=== PATIENT | male | born 1940 | race Caucasian/White ===

== ENCOUNTER 2019-04-24 20:09 | Inpatient (IN) | payer MEDICARE, BC ==
[~2019-04-24] VITALS: Ht 160 cm; Wt 78.9 kg
[~2019-04-24 20:09] MED LIST: AMLODIPINE5 MG PO; ASPIRIN325 MG PO; ASPIRIN81 M1 PO; COREG6.25 MG PO; DILTZAC PO; EPA/GLA1 SGL PO; HYDROCHLOROTHIA25 MG PO; NEXIUM40 MG PO; OMEPRAZOLE40 MG PO; PRADAXA150 MG PO; QUINAPRIL40 MG PO; SOTALOL80 MG PO
[2019-04-24 20:10] VITALS: BP 144/92
[2019-04-24 20:26] VITALS: BP 135/87
[2019-04-24 20:46] LABS: BASO # 0.1 10*3/uL (0.0-0.1); BASO % 0.7 % (0.0-1.0); EOS # 0.7 10*3/uL (0.0-0.4); HEMATOCRIT 27.6 % (42.0-52.0); HEMOGLOBIN 7.8 g/dl (14.0-18.0); LYMPH # 2.5 10*3/uL (1.3-4.4); LYMPH % 20.3 % (27.0-41.0); MEAN CELL VOLUME 76.9 fl (80.0-94.0); MEAN CORPUSCULAR HGB 21.7 pg (27.0-31.0); MEAN CORPUSCULAR HGB CONC 28.3 g/dl (33.0-37.0); MEAN PLATELET VOLUME 11.6 fl (9.6-12.3); MONO # 1.4 10*3/uL (0.1-1.0); MONO % 11.8 % (3.0-9.0); NEUT # 7.3 10*3/uL (2.3-7.9); NEUT % 60.7 % (47.0-73.0); PLATELET COUNT AUTOMATED 325 10*3/uL (130-400); RED BLOOD COUNT 3.59 10*6/uL (4.50-5.90); WHITE BLOOD COUNT 12.1 10*3/uL (4.8-10.8)
[2019-04-24 21:00] LABS: ALBUMIN 3.2 gm/dl (3.1-4.5); ALKALINE PHOSPHATASE 77 U/L (45-117); BUN 21 mg/dl (7-24); CHLORIDE 107 mmol/L (98-107); CREATININE 1.48 mg/dL (0.70-1.30); POTASSIUM 3.8 mmol/L (3.5-5.1); SGOT/AST 61 IU/L (3-35); SGPT/ALT 79 U/L (12-78); SODIUM 140 mmol/L (136-145); TOTAL PROTEIN 7.7 gm/dL (6.4-8.2)
[2019-04-24 21:02] LABS: TROPONIN I < 0.015 ng/ml (<0.045)
[2019-04-24 21:07] VITALS: BP 108/47
--- NOTE | 2019-04-24 21:08 | NUR ---
PT WAS GIVEN 5 MG OF CARDIZEM WHEN HIS RATE DROPPED FROM 122 TO 82 AT THAT TIME THE CARDIZEM WAS STOPPED AND THE DRIP WAS NOT STARTED. TIFFANY HERMAN RN.
[2019-04-24 21:49] LABS: ACT PARTIAL THROMBO TIME 25.2 SECONDS (20.0-32.1)
--- NOTE | 2019-04-24 22:27 | NUR ---
PT MOVED TO HOSPITAL BED CALL LIGHT IN REACH SIDE RAILS UP . PT VOICES NO COMPLAINTS. TIFFANY HERMAN RN.
--- NOTE | 2019-04-24 23:40 | NUR ---
LAB CALLED WITH CRITICAL TROPONIN LEVEL OF 0.091.
[2019-04-25] VITALS (12 sets, daily range): BP systolic 104–138; BP diastolic 49–80
--- NOTE | 2019-04-25 01:16 | NUR ---
AFTER STARTING THE CARDIZEM DRIP THE PATIENT RATE AGAIN DROPPED TO THE 70/S AND THE PATIENT STATES THE BACK PAIN IS GONE. TIFFANY HERMAN RN.
--- NOTE | 2019-04-25 02:34 | NUR ---
RESIDENT MADR AWARE OF ELEVATED TROPONIN OF 0.156. TIFFANY HERMAN RN
[2019-04-25 05:43] LABS: ALBUMIN 2.9 gm/dl (3.1-4.5); ALKALINE PHOSPHATASE 63 U/L (45-117); BUN 19 mg/dl (7-24); CHLORIDE 108 mmol/L (98-107); CHOLESTEROL 87 mg/dL (<200); CREATININE 1.19 mg/dL (0.70-1.30); HDL CHOLESTEROL 24 mg/dl (40-60); LDL CHOLESTEROL 53 mg/dL (9-159); POTASSIUM 3.5 mmol/L (3.5-5.1); SGOT/AST 41 IU/L (3-35); SGPT/ALT 63 U/L (12-78); SODIUM 140 mmol/L (136-145); TOTAL PROTEIN 6.8 gm/dL (6.4-8.2); TRIGLYCERIDES 49 mg/dl (<150); VLDL CHOLESTEROL 10 mg/dL (6-40)
[2019-04-25 06:18] LABS: BASO # 0.1 10*3/uL (0.0-0.1); BASO % 0.6 % (0.0-1.0); EOS # 0.7 10*3/uL (0.0-0.4); EOS % 5.7 % (1.0-4.0); HEMOGLOBIN 7.3 g/dl (14.0-18.0); LYMPH # 2.3 10*3/uL (1.3-4.4); MEAN CELL VOLUME 76.2 fl (80.0-94.0); MEAN CORPUSCULAR HGB 21.4 pg (27.0-31.0); MEAN CORPUSCULAR HGB CONC 28.1 g/dl (33.0-37.0); MEAN PLATELET VOLUME 12.1 fl (9.6-12.3); MONO # 1.3 10*3/uL (0.1-1.0); MONO % 11.3 % (3.0-9.0); NEUT # 7.1 10*3/uL (2.3-7.9); NEUT % 61.8 % (47.0-73.0); PLATELET COUNT AUTOMATED 315 10*3/uL (130-400); RED BLOOD COUNT 3.41 10*6/uL (4.50-5.90); WHITE BLOOD COUNT 11.5 10*3/uL (4.8-10.8)
--- NOTE | 2019-04-25 07:13 | NUR ---
NOTIFIED RN AND PHYSICIAN TROPONIN 0.289
--- NOTE | 2019-04-25 07:50 | NUR ---
+TROPONIN RESULT CALLED TO HOSPITALIST. MESSAGE LEFT WITH CARDIOLOGY. WE ARE STILL WAITING ON A BED AT [facility] [place].
--- NOTE | 2019-04-25 08:07 | NUR ---
SPOKE WITH DR BOTELLO REGARDING TROPONIN RESULT.
[2019-04-25 08:17] LABS: VITAMIN D, 25-HYDROXY 26.9 ng/mL (30-100)
--- NOTE | 2019-04-25 09:09 | NUR ---
SPOKE WITH [facility]. THEY WERE REQUESTING AN UPDATE ON PT. THEY ARE STILL NO BEDS AVAILABLE. THEY WILL CALL BACK WHEN ONE BECOMES AVAILBLE.
--- NOTE | 2019-04-25 14:00 | NUR ---
PT RESTING IN BED. IN NO ACUTE DISTRESS
[2019-04-25 14:29] LABS: BASO # 0.1 10*3/uL (0.0-0.1); BASO % 0.7 % (0.0-1.0); EOS # 0.7 10*3/uL (0.0-0.4); EOS % 6.3 % (1.0-4.0); HEMATOCRIT 26.6 % (42.0-52.0); HEMOGLOBIN 7.6 g/dl (14.0-18.0); LYMPH # 2.1 10*3/uL (1.3-4.4); LYMPH % 18.2 % (27.0-41.0); MEAN CORPUSCULAR HGB 21.7 pg (27.0-31.0); MEAN CORPUSCULAR HGB CONC 28.6 g/dl (33.0-37.0); MEAN PLATELET VOLUME 11.9 fl (9.6-12.3); MONO # 1.2 10*3/uL (0.1-1.0); MONO % 10.7 % (3.0-9.0); NEUT # 7.3 10*3/uL (2.3-7.9); NEUT % 63.6 % (47.0-73.0); PLATELET COUNT AUTOMATED 353 10*3/uL (130-400); RED CELL DISTRI WIDTH 17.2 % (0-14.5); WHITE BLOOD COUNT 11.5 10*3/uL (4.8-10.8)
--- NOTE | 2019-04-25 17:51 | NUR ---
[facility] HERE FOR TRANSPORT.
--- NOTE | 2019-04-25 18:10 | NUR ---
REPORT TO FLOOR RN AT [facility].
== END 2019-04-25 18:05 | disposition short-term general hospital (02) | DRG 280 ==
LOC: ED 20:09 → EDHOLD 21:37
PROVIDERS: Emergency Medicine; Internal Medicine; Student in an Organized Health Care Education/Training Program; ADMIT Internal Medicine
DX: I21.4 Non-ST elevation (NSTEMI) myocardial infarction (principal); N17.0 Acute kidney failure with tubular necrosis; R65.11 Systemic inflammatory response syndrome (SIRS) of non-infectious origin with acute organ dysfunction; I48.1 Persistent atrial fibrillation; K92.2 Gastrointestinal hemorrhage, unspecified; D68.69 Other thrombophilia; I25.810 Atherosclerosis of coronary artery bypass graft(s) without angina pectoris; C22.8 Malignant neoplasm of liver, primary, unspecified as to type; D50.9 Iron deficiency anemia, unspecified; R73.9 Hyperglycemia, unspecified; M54.6 Pain in thoracic spine; K76.0 Fatty (change of) liver, not elsewhere classified; I73.9 Peripheral vascular disease, unspecified; I50.9 Heart failure, unspecified; K21.9 Gastro-esophageal reflux disease without esophagitis; I11.0 Hypertensive heart disease with heart failure; E78.5 Hyperlipidemia, unspecified; I25.2 Old myocardial infarction; Z87.891 Personal history of nicotine dependence; Z95.1 Presence of aortocoronary bypass graft; Z82.49 Family history of ischemic heart disease and other diseases of the circulatory system; Z88.8 Allergy status to other drugs, medicaments and biological substances; Z79.82 Long term (current) use of aspirin; Z79.899 Other long term (current) drug therapy; Z95.828 Presence of other vascular implants and grafts